=== PATIENT | female | born 1950 ===

== ENCOUNTER → 2018-02-20 | Day surgery (SDC) | payer OTHER ==
[~2018-02-20] MED LIST: AMLODIPINE BESYL5 MG PO; ATORVASTATIN CA40 MG PO; FENOFIBRATE54 MG; GLIMEPIRIDE4 MG PO; JANUMET PO; LOSARTAN-HCTZ1 EAC2 PO; METROPOLOL PO; PIOGLITAZONE HC15 MG; TOLTERODINE TART4 MG PO; ZETIA10 MG; [UNRECOGNIZED DRUG - OTHER] PO
== END | disposition home or self-care (01) ==
LOC: CIR.AMB 05:30
DX: M51.26 Other intervertebral disc displacement, lumbar region (principal)

== ENCOUNTER 2021-11-21 09:15 | Inpatient (IN) | payer OTHER ==
[~2021-11-21] VITALS: Ht 157.5 cm; Wt 75.3 kg
[2021-11-26] MEDS ORDERED: HYDRALAZINE HC100 MG (08:22)
[2021-11-26] MEDS ORDERED: METOPROLOL SUC100 MG (08:22)
[2021-11-26] MEDS ORDERED: OMEPRAZOLE20 MG (08:22)
[2021-11-26] MEDS ORDERED: JANUMET 50-1,01 EACH (08:22)
[2021-11-26] MEDS ORDERED: TIMOLOL MALEATE5 M4 (08:22)
[2021-11-26] MEDS ORDERED: METOPROLOL TAR100 MG (08:22)
[2021-11-26] MEDS ORDERED: BRIMONIDINE TART5 ML (08:26)
[2021-11-28] MEDS ORDERED: BACTRIM DS TAB1 EACH PO (06:38)
[2021-11-28] MEDS ORDERED: OXYC1TAB9 PO (06:38)
[2021-11-28] MEDS ORDERED: INTEGRA PLUS C1 EACH PO (06:38)
[2021-11-28] MEDS ORDERED: ELIQUIS2.5 MG PO (06:38)
== END 2021-11-28 13:59 | DRG 470 ==
LOC: ADM 09:15 → O/R 11-26 06:16 → SURH 11-26 06:16 → EDSTATUS 11-26 09:15 → CIR.AMB 11-26 09:15 → SURH 11-26 13:40 → CIR.AMB 11-26 14:30 → SURH 11-28 13:59
PROVIDERS: ADMIT Orthopaedic Surgery Sports Medicine; ATTEND Orthopaedic Surgery Sports Medicine
PROC: 0SRC0J9 Replacement of Right Knee Joint with Synthetic Substitute, Cemented, Open Approach (ICD-10-PCS; principal; 2021-11-26 14:30)
DX: M17.11 Unilateral primary osteoarthritis, right knee (principal); Z20.822 Contact with and (suspected) exposure to COVID-19